=== PATIENT | female | born 2000 | race African-American/Black ===

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

== ENCOUNTER 2020-05-06 22:29 | Emergency (ER) | payer OTHER, SELFPAY ==
[2020-05-06 22:56] VITALS: BP 113/75; PULSE 75; RESP 20; TEMP 36.2; O2SAT 100
[2020-05-06 23:16] LABS: Basophils Absolute Auto 0.1 K/mm3 (0.0-0.1); Basophils Percent Auto 0.5 % (0.2-1.2); Eosinophils Percent Auto 0.1 % (0-4.4); Hematocrit 34.4 % (37.0-47.0); Hemoglobin 11.8 g/dL (12.0-15.0); Immature Granulocyte Absolute 0.04 K/mm3 (0.00-0.031); Immature Granulocyte Percent A 0.4 % (0-0.5); Lymphocytes Absolute Auto 0.99 K/mm3 (0.9-3.2); Lymphocytes Percent Auto 9.6 % (18.3-44.2); Mean Corpuscular HGB Conc 34.3 g/dl (32-36); Mean Corpuscular Hemoglobin 30.3 pg (26-34); Mean Corpuscular Volume 88.2 fl (80-100); Mean Platelet Volume 11.3 fl (7.4-10.4); Monocytes Absolute Auto 0.8 K/mm3 (0.1-0.6); Monocytes Percent Auto 7.8 % (2.6-8.5); Neutrophils Absolute Auto 8.4 K/mm3 (1.3-6.7); Neutrophils Percent Auto 81.6 % (45.5-73.1); Platelet Count Result 213 k/mm3 (150-375); Red Cell Distribution Width 11.8 % (11.5-14.5); White Blood Count 10.3 K/mm3 (4.5-10.0)
[2020-05-06 23:30] LABS: Alanine Aminotransferase 19 U/L (4-35); Albumin Level 4.9 g/dL (3.5-5.1); Alkaline Phosphatase 80 U/L (38-126); Anion Gap 13 mmol/L (8-16); Aspartate Amino Transferase 30 U/L (14-36); Bilirubin,Total 1.5 mg/dL (0.2-1.3); Blood Urea Nitrogen 10 mg/dL (7-17); Carbon Dioxide 19 mmol/L (22-30); Chloride 106 mmol/L (98-107); Estimated Glomerular Filt Rate > 60; Glucose 139 mg/dL (65-105); Lipase 31 U/L (23-300); Potassium 3.6 mmol/L (3.4-5.0); Sodium 138 mmol/L (137-145)
[2020-05-06 23:59] LABS: Add Urine Microscopic? YES; Appearance Urine Clear (Clear); Bilirubin Urine Negative (Negative); Blood Urine Negative (Negative); Color Urine Yellow (Yellow); Glucose Urine UA Negative (Negative); Ketones Urine 1+ mg/dL (Negative); Leukocyte Esterase Ur 1+ LEU/UL (Negative); Mucus Urine Heavy /lpf; Nitrate Urine Negative (Negative); Protein Urine 2+ mg/dL (Negative); Squamous Epithelial Cell Urine Many /hpf (Few); Urobilinogen Urine Negative mg/dL (<2.0)
[2020-05-07 00:04] LABS: Specific Grav Ur 1.031 (1.001-1.035)
--- NOTE | 2020-05-07 00:06 | ED.ABDPAIN ---
HPI - Abdominal Pain General Chief Complaint: Abdominal Pain Stated Complaint: abd pain, n/v Time Seen by Provider: 05/06/20 23:42 Source: patient Mode of arrival: ambulatory Limitations: no limitations History of Present Illness HPI narrative: This patient is a 20 year old female who presents for evaluation of lower abdominal pain starting this morning. This pain has been constant and gradually worsening. She has also been having nausea and vomiting. She tried taking ibuprofen with out relief. She reports she had pain similar to this 1 year ago and it was due to a STD. She denies abnormal vaginal discharge. MD elicited complaint: abdominal pain Migration to: other (back) Related Data Allergies Allergy/AdvReac Type Severity Reaction Status Date / Time No Known Allergies Allergy Mild Verified 05/06/20 22:59 Review of Systems Review of Systems: All systems reviewed & are unremarkable except as noted in HPI and below Constitutional: Constitutional: Denies chills and Denies fever(s) Gastrointestinal: Gastrointestinal: Reports abdominal pain, Denies constipation, Denies diarrhea, Reports nausea and Reports vomiting Genitourinary: Genitourinary: Denies abnormal vaginal bleeding, Denies dysuria and Denies vaginal discharge Musculoskeletal: Musculoskeletal: Reports back pain [facility] Past Medical History Medical History (Updated 05/07/20 @ 03:18 by Telma Costa MD) Pelvic inflammatory disease Surgical History Surgical History (Updated 11/21/19 @ 17:30 by Arnoldo Braxton [employer]) Surgical history unknown Social History Social History (Updated 11/21/19 @ 17:30 by Arnoldo Braxton [employer]) Smoking status: Unknown if ever smoked Gender identity (if verbalized by the patient): Female Exam Const: General: no acute distress and alert Orientation/consciousness: patient oriented x3 HENMT: Head: normocephalic and atraumatic Face and sinus: face symmetric Mouth: Yes Normal oral and palatal mucosa present, Yes oropharynx normal and Yes moist mucous membranes Throat: posterior oropharynx normal and uvula midline Eyes: Pupils: Equal, round and reactive pupils present EOM: EOMs intact bilaterally Neck: Neck: no lymphadenopathy Chest: Chest palpation & inspection: normal inspection of the chest Resp: Effort & Inspection: normal respiratory effort and no retractions Auscultation: clear to auscultation bilaterally Cardio: Rate: regular rate Rhythm: regular rhythm Heart sounds: no murmurs GI: GI Palp: Yes Soft to palpation, Yes Tenderness to palpation present (GI) (suprapubic), No Guarding due to palpation present (GI), No Rigid due to palpation and No Hernia present : General: Yes no CVA tenderness Speculum Exam - Vagina: abnormal vaginal discharge yellow (watery) Speculum Exam - Cervix: Cervical os closed Bimanual exam- vagina & uterus: cervical motion tenderness Skin: General skin exam: normal color Rashes: no rashes Neuro: General: patient oriented x3 and moves all extremities Psych: Mental Status: mental status grossly normal Course Reevaluation(s) Reevaluation #1: PAtient states she feels much better. She has not nausea or vomiting. She will be treated for pid. Date: 05/07/20 Time: 03:15 Vital Signs Vital signs: Vital Signs Temperature 97.1 F L 05/06/20 22:56 Pulse Rate 75 05/06/20 22:56 Respiratory Rate 20 05/06/20 22:56 Blood Pressure 113/75 05/06/20 22:56 Pulse Oximetry 100 05/06/20 22:56 Temperature 97.1 F L 05/06/20 22:56 Pulse Rate 82 05/07/20 03:32 Respiratory Rate 16 05/07/20 03:32 Blood Pressure 118/79 05/07/20 03:32 Pulse Oximetry 100 05/07/20 03:32 MDM - Abdominal Pain Lab Data Attestation: I reviewed the patient's lab results. Result diagrams: 05/06/20 23:06 05/06/20 23:06 Labs: Lab Results 05/06/20 05/06/20 05/06/20 Range/Units 23:06 23:06 23:13 WBC 10.3 H (4.5-10.0) K/mm3
[2020-05-07] MEDS: ONDANSETRON INJ 4 MG/2 ML VIAL IV PUSH (00:31)
[2020-05-07] MEDS: LACTATED RINGERS 1,000 ML 999 ML IV CONT (00:31)
[2020-05-07] MEDS: KETOROLAC 30 MG/ML VIAL (*BKC) IV PUSH (00:31)
[2020-05-07 01:20] VITALS: BP 115/83; PULSE 81; RESP 16; O2SAT 100
[2020-05-07] MEDS: cefTRIAXone 250 MG VIAL IM (02:34)
[2020-05-07] MEDS: DOXYCYCLINE HYCLATE 100 MG TABLET PO (02:34)
--- NOTE | 2020-05-07 02:34 | PC.NURSE ---
lidocaine used to reconstitute rocephin
[2020-05-07 03:32] VITALS: BP 118/79; PULSE 82; RESP 16; O2SAT 100
== END 2020-05-07 03:34 | disposition home or self-care (01) ==
PROVIDERS: Emergency Provider General Practice; PCP Family Medicine
DX: N73.9 Female pelvic inflammatory disease, unspecified (principal)
CPT/HCPCS: 36415; 80053; 81001; 81025; 83690; 85025; 87070; 87077; 87086; 87088; 87491; 87591; 87808; 96361; 96372; 96374; 96375; 99284; A9270; J0696; J1885; J2405; J7120

== ENCOUNTER 2020-05-10 09:13 | Emergency (ER) | payer OTHER, SELFPAY ==
--- NOTE | ~2020-05-10 | US_ITS ---
EXAMINATION: US pelvic complete w TV DATE: 05/10/2020 12:19 INDICATION: Lower abdominal and pelvic pain TECHNIQUE: Multiple transabdominal and endovaginal sonographic images of the pelvis were obtained. COMPARISON: CT from today FINDINGS: The uterus measures 6.2 x 4.0 x 3.3 cm. The endometrial complex measures 5 mm. The right ov jett measures 3.4 x 3.1 x 1.5 cm and contains a 1.7 cm isoechoic/slightly hypoechoic area. The left ov jett measures 2.9 x 3.6 x 2.7 cm contains a 2.0 x 1.6 x 1.6 hypoechoic area. There is normal vascular flow in the ovaries. There is no free fluid in the pelvis. IMPRESSION: 1. No sonographic correlate for the patient's symptoms. 2. Hemorrhagic cysts or endometriomas of the ovaries follow-up ultrasound in 6-12 weeks is recommende d. Reviewed, dictated and finalized at [facility]. IMPRESSION: 1. No sonographic correlate for the patient's symptoms. 2. Hemorrhagic cysts or endometriomas of the ovaries follow-up ultrasound in 6- 12 weeks is recommended.
--- NOTE | ~2020-05-10 | CT_ITS ---
EXAMINATION: CT abdomen pelvis w con DATE: 05/10/2020 11:09 INDICATION: Low abdominal pain. Nausea and vomiting. Urinary tract infection. TECHNIQUE: Computed tomography (CT) of the abdomen and pelvis was performed with 100 cc Omnipaque 350 intravenous contrast. Automated exposure control and iterative reconstruction technique were employe d. Exam dose: 256.66 mGy-cm total exam DLP. COMPARISON: 09/18/2018 CT abdomen pelvis FINDINGS: The lung bases are clear. Normal heart size. No pericardial or pleural effusion. The liver, gallbladder, bile ducts, spleen, pancreas, pancreatic duct, and adrenal glands and kidneys are unremarkable. The uterus is situated left of midline. Normal caliber of the abdominal aorta. No intraperitoneal or retroperitoneal or pelvic mass lesion or adenopathy or ascites is evident. The appendix appears normal. There is a prominent amount of fecal material in the colon. No bowel obs truction, bowel wall thickening, pneumatosis or intraperitoneal free air is evident. There are bilateral L5 pars interarticularis defects with associated grade 1 anterolisthesis at L5-S1 . IMPRESSION: Bilateral L5 pars interarticularis defects with associated grade 1 anterolisthesis at L5 -S1 Reviewed, dictated and finalized at [facility]. Reviewed, dictated and finalized at [facility]. IMPRESSION: Bilateral L5 pars interarticularis defects with associated grade 1 anterolisthesis at L5-S1
[2020-05-10 09:12] VITALS: BP 122/65; PULSE 76; RESP 16; TEMP 36.4; O2SAT 100
[2020-05-10 09:46] LABS: Basophils Percent Auto 0.6 % (0.2-1.2); Eosinophils Absolute Auto 0.1 K/mm3 (0-0.3); Hematocrit 35.4 % (37.0-47.0); Hemoglobin 12.3 g/dL (12.0-15.0); Immature Granulocyte Absolute 0.02 K/mm3 (0.00-0.031); Immature Granulocyte Percent A 0.3 % (0-0.5); Lymphocytes Absolute Auto 1.48 K/mm3 (0.9-3.2); Lymphocytes Percent Auto 23.5 % (18.3-44.2); Mean Corpuscular HGB Conc 34.7 g/dl (32-36); Mean Corpuscular Hemoglobin 30.3 pg (26-34); Mean Corpuscular Volume 87.2 fl (80-100); Mean Platelet Volume 11.5 fl (7.4-10.4); Monocytes Absolute Auto 0.5 K/mm3 (0.1-0.6); Monocytes Percent Auto 7.1 % (2.6-8.5); Neutrophils Absolute Auto 4.3 K/mm3 (1.3-6.7); Neutrophils Percent Auto 67.5 % (45.5-73.1); Platelet Count Result 184 k/mm3 (150-375); Red Blood Count 4.06 M/mm3 (4.2-5.4); Red Cell Distribution Width 11.5 % (11.5-14.5); White Blood Count 6.3 K/mm3 (4.5-10.0)
[2020-05-10 09:51] LABS: Add Urine Microscopic? YES; Appearance Urine Cloudy (Clear); Bacteria Urine Trace /hpf; Bilirubin Urine 1+ (Negative); Blood Urine 2+ (Negative); Color Urine Amber (Yellow); Glucose Urine UA Negative (Negative); Ketones Urine 1+ mg/dL (Negative); Leukocyte Esterase Ur 2+ LEU/UL (Negative); Mucus Urine Moderate /lpf; Nitrate Urine Negative (Negative); Protein Urine 2+ mg/dL (Negative); Squamous Epithelial Cell Urine Many /hpf (Few); WBC Clumps Urine Present /HPF; WBC Urine >75 /hpf
[2020-05-10 09:56] LABS: Specific Grav Ur 1.035 (1.001-1.035)
--- NOTE | 2020-05-10 10:35 | ED.ABDPAIN ---
HPI - Abdominal Pain General Chief Complaint: Abdominal Pain <Khadra Lewis PA-C - Last Filed: 05/10/20 14:57> Stated Complaint: ABD PAIN <Khadra Lewis PA-C - Last Filed: 05/10/20 14:57> Time Seen by Provider: 05/10/20 10:06 <Khadra Lewis PA-C - Last Filed: 05/10/20 14:57> Source: patient <Khadra Lewis PA-C - Last Filed: 05/10/20 14:57> Mode of arrival: ambulatory <Khadra Lewis PA-C - Last Filed: 05/10/20 14:57> Limitations: no limitations <Khadra Lewis PA-C - Last Filed: 05/10/20 14:57> History of Present Illness HPI narrative: This is a 20-year-old female presents to the emergency department for lower abdominal pain x3 days. Associated with nausea and vomiting. Reports she was seen for this 3 days ago and started on antibiotics with little relief. Also reports abnormal vaginal discharge. Denies fever, dysuria, hematuria. <Khadra Lewis PA-C - Last Filed: 05/10/20 14:57> Related Data Allergies/Adverse Reactions: Allergies Allergy/AdvReac Type Severity Reaction Status Date / Time No Known Allergies Allergy Mild Verified 05/10/20 09:20 <Khadra Lewis PA-C - Last Filed: 05/10/20 14:57> Review of Systems Review of Systems: Narrative: CONSTITUTIONAL: Denies fever GASTROINTESTINAL: Reports abdominal pain, nausea, vomiting GENITOURINARY: Denies dysuria or hematuria. <Khadra Lewis PA-C - Last Filed: 05/10/20 14:57> All systems reviewed & are unremarkable except as noted in HPI and below <Khadra Lewis PA-C - Last Filed: 05/10/20 14:57> [facility] Past Medical History Medical History: Medical History (Updated 05/10/20 @ 14:41 by Khadra Lewis PA-C) Pelvic inflammatory disease <Khadra Lewis PA-C - Last Filed: 05/10/20 14:57> Surgical History Surgical History: Surgical History (Updated 11/21/19 @ 17:30 by Arnoldo Braxton, [facility]) Surgical history unknown <Khadra Lewis PA-C - Last Filed: 05/10/20 14:57> Social History Social History: Social History (Updated 05/10/20 @ 10:37 by Khadra Lewis PA-C) Smoking status: Never smoker Substance use: never Gender identity (if verbalized by the patient): Female <Khadra Lewis PA-C - Last Filed: 05/10/20 14:57> Exam Narrative: Exam Narrative: GENERAL: Well-appearing, well-nourished, and in no acute distress. HEAD: Normocephalic, atraumatic. EYES: EOMI. CHEST: Clear to auscultation. No respiratory distress. No wheezes rales or rhonchi HEART: Regular rate and rhythm. No murmur heard. Normal peripheral pulses. ABDOMEN: Soft, nondistended, normal active bowel sounds. Mild lower abdominal tenderness, without guarding. No CVA tenderness EXTREMITIES: Normal range of motion. No edema. SKIN: Warm, dry, no rash. NEURO: No focal deficits. Alert and oriented x3. PSYCH: Normal mood and affect PELVIC: Cervix with mild redness with small amount of white cervical discharge. +CMT <Khadra Lewis PA-C - Last Filed: 05/10/20 14:57> Course Consultations Consultation #1: Spoke with Dr. Emmanuel about patient and workup. Will follow up in clinic. Will be started on Amoxicillin for group B strep UTI. Will finish her doxycycline as prescribed <Khadra Lewis PA-C - Last Filed: 05/10/20 14:57> Date: 05/10/20 <Khadra Lewis PA-C - Last Filed: 05/10/20 14:57> Time: 14:40 <Khadra Lewis PA-C - Last Filed: 05/10/20 14:57> Vital Signs Vital signs: Vital Signs Temperature 97.5 F L 05/10/20 09:12 Pulse Rate 76 05/10/20 09:12 Respiratory Rate 16 05/10/20 09:12 Blood Pressure 122/65 05/10/20 09:12 Pulse Oximetry 100 05/10/20 09:12 Temperature 97.5 F L 05/10/20 09:12 Pulse Rate 68 05/10/20 15:25 Respiratory Rate 16 05/10/20 15:25 Blood Pressure 140/83 05/10/20 15:25 Pulse Oximetry 100 05/10/20 15:25 <Kharda Lewis PA-C - Last Filed: 05/10/20 14:57> Vital Signs Temperature 97.5 F L 05/10/20 09
[2020-05-10 10:38] LABS: Alanine Aminotransferase 18 U/L (4-35); Albumin Level 4.6 g/dL (3.5-5.1); Alkaline Phosphatase 84 U/L (38-126); Anion Gap 11 mmol/L (8-16); Aspartate Amino Transferase 25 U/L (14-36); Bilirubin,Total 1.2 mg/dL (0.2-1.3); Blood Urea Nitrogen 13 mg/dL (7-17); Calcium 9.2 mg/dL (8.4-10.2); Carbon Dioxide 20 mmol/L (22-30); Chloride 103 mmol/L (98-107); Estimated CRCL calculation 84 ml/min; Estimated Glomerular Filt Rate > 60; Glucose 120 mg/dL (65-105); Lipase 55 U/L (23-300); Potassium 2.7 mmol/L (3.4-5.0); Sodium 134 mmol/L (137-145)
[2020-05-10] MEDS: SODIUM CHLORIDE 0.9% IV 1,000 ML 999 ML IV CONT (10:44)
[2020-05-10] MEDS: ONDANSETRON INJ 4 MG/2 ML VIAL IV PUSH (10:44)
--- NOTE | 2020-05-10 11:19 | PC.NURSE ---
rn report given by alan solis
[2020-05-10] MEDS: POTASSIUM CHLORIDE 20 MEQ TABLET 40 MEQ PO (11:28)
[2020-05-10 15:25] VITALS: BP 140/83; PULSE 68; RESP 16; O2SAT 100
== END 2020-05-10 15:26 | disposition home or self-care (01) ==
PROVIDERS: Emergency Provider General Practice; PCP Family Medicine
DX: N30.00 Acute cystitis without hematuria (principal); E87.6 Hypokalemia
CPT/HCPCS: 36415; 74177; 76830; 76856; 80053; 81001; 81025; 83690; 85025; 96361; 96365; 96375; 99284; A9270; J0131; J0696; J2405; J7030; Q9967

== ENCOUNTER 2020-05-11 18:21 | Emergency (ER) | payer OTHER, SELFPAY ==
[2020-05-11 19:14] VITALS: BP 120/73; PULSE 96; RESP 18; TEMP 36.9; O2SAT 100
[2020-05-11 19:38] LABS: Alanine Aminotransferase 16 U/L (4-35); Albumin Level 4.6 g/dL (3.5-5.1); Alkaline Phosphatase 81 U/L (38-126); Anion Gap 9 mmol/L (8-16); Aspartate Amino Transferase 22 U/L (14-36); Bilirubin,Total 1.6 mg/dL (0.2-1.3); Blood Urea Nitrogen 11 mg/dL (7-17); Calcium 9.4 mg/dL (8.4-10.2); Carbon Dioxide 22 mmol/L (22-30); Chloride 105 mmol/L (98-107); Estimated CRCL calculation 95 ml/min; Estimated Glomerular Filt Rate > 60; Glucose 99 mg/dL (65-105); Lipase 70 U/L (23-300); Potassium 3.1 mmol/L (3.4-5.0); Sodium 136 mmol/L (137-145)
[2020-05-11 20:06] LABS: Add Urine Microscopic? YES; Appearance Urine Clear (Clear); Bilirubin Urine 1+ (Negative); Blood Urine 2+ (Negative); Color Urine Amber (Yellow); Glucose Urine UA Negative (Negative); Ketones Urine 1+ mg/dL (Negative); Leukocyte Esterase Ur 1+ LEU/UL (Negative); Mucus Urine Heavy /lpf; Nitrate Urine Negative (Negative); Protein Urine 2+ mg/dL (Negative); Squamous Epithelial Cell Urine Many /hpf (Few)
[2020-05-11 20:07] LABS: Specific Grav Ur 1.038 (1.001-1.035)
--- NOTE | 2020-05-11 20:14 | PC.NURSE ---
Pt left with with a steady gate. Pt states I am leaving, Ill come back a different day.
[2020-05-11 20:22] LABS: Basophils Percent Auto 0.4 % (0.2-1.2); Eosinophils Absolute Auto 0.1 K/mm3 (0-0.3); Hematocrit 33.5 % (37.0-47.0); Hemoglobin 11.9 g/dL (12.0-15.0); Immature Granulocyte Absolute 0.04 K/mm3 (0.00-0.031); Immature Granulocyte Percent A 0.6 % (0-0.5); Lymphocytes Absolute Auto 1.69 K/mm3 (0.9-3.2); Lymphocytes Percent Auto 24.1 % (18.3-44.2); Mean Corpuscular HGB Conc 35.5 g/dl (32-36); Mean Corpuscular Hemoglobin 30.3 pg (26-34); Mean Corpuscular Volume 85.2 fl (80-100); Mean Platelet Volume 11.8 fl (7.4-10.4); Monocytes Absolute Auto 0.5 K/mm3 (0.1-0.6); Monocytes Percent Auto 6.4 % (2.6-8.5); Neutrophils Absolute Auto 4.7 K/mm3 (1.3-6.7); Neutrophils Percent Auto 67.5 % (45.5-73.1); Platelet Count Result 193 k/mm3 (150-375); Red Blood Count 3.93 M/mm3 (4.2-5.4); Red Cell Distribution Width 10.8 % (11.5-14.5)
== END 2020-05-11 20:14 | disposition left against medical advice (07) ==
PROVIDERS: Emergency Provider Emergency Medicine; PCP Family Medicine
DX: R10.9 Unspecified abdominal pain (principal)
CPT/HCPCS: 36415; 80053; 81001; 83690; 85025; 87086; 99199